=== PATIENT | male | born 1995 ===

== ENCOUNTER 2020-12-30 11:43 | Emergency (ER) | payer SELFPAY ==
[2020-12-30] MEDS ORDERED: Ketorolac Tromethamine 30 MG/ML VIAL ONE (13:48)
== END 2020-12-30 13:58 | disposition home or self-care (01) ==
LOC: ERS 11:43
DX: S93.401A Sprain of unspecified ligament of right ankle, initial encounter (principal); W22.8XXA Striking against or struck by other objects, initial encounter
CPT/HCPCS: 96372; J1885